=== PATIENT | female | born 1960 | race Caucasian/White ===

== ENCOUNTER 2021-12-27 17:12 | Emergency (ER) | payer OTHER, SELFPAY ==
--- NOTE | 2021-12-27 | ECG_ITS ---
Test Reason : chest pain Blood Pressure : / mmHG Vent. Rate : 072 BPM Atrial Rate : 072 BPM P-R Int : 154 ms QRS Dur : 076 ms QT Int : 438 ms P-R-T Axes : -22 025 026 degrees QTc Int : 479 ms Normal sinus rhythm Normal ECG No previous ECGs available Referred By: Generic ED Physician Electronically Signed By:Jean Claude Tee
--- NOTE | ~2021-12-27 | XR_ITS ---
EXAMINATION: PORTABLE CHEST 1 VIEW CLINICAL INFORMATION: CP . COMPARISON: No recent pertinent prior studies are available for comparison. TECHNIQUE: Portable frontal view of the chest was obtained. FINDINGS: The lungs are well expanded. Minimal basilar markings more likely due to atelectasis and overlying soft tissue but no superimposed focal infiltrate, effusion, edema, or pneumothorax. Cardiac and mediastinal silhouettes are within normal limits for technique. No acute bony abnormality seen. XR/XR chest 1V IMPRESSION: No evidence of acute disease.
[2021-12-27 17:20] VITALS: BP 198/118; PULSE 80; RESP 16; TEMP 36.5; O2SAT 98; BMI 32.3
[2021-12-27 17:37] LABS: MANUAL DIFF FLAG NO
[2021-12-27 17:45] LABS: Basophils Percent Auto 0.6 % (0-2); Eosinophils Absolute Auto 0.2 X10*3/uL (0.0-0.4); Hemoglobin 14.2 g/dl (12.0-16.0); Monocytes Absolute Auto 0.3 X10*3/uL (0.1-1.2); Neutrophils Absolute Auto 4.2 x10*3/uL (2.0-8.3); PLT CLUMP 1; Red Cell Distribution Width 12.8 % (11.0-16.0); SCAN SMEAR FLAG 1
[2021-12-27 17:47] LABS: Eosinophils Percent Auto 2.9 % (0-4); Hematocrit 41.7 % (37.0-47.0); Imm Gran Abs Auto 0.04 X10*3/uL (0.00-0.03); Imm Gran Pct Auto 0.6 % (0.0-0.4); Lymphocytes Absolute Auto 1.7 X10*3/uL (1.2-4.9); Lymphocytes Percent Auto 26.4 % (20-40); Mean Corpuscular HGB Conc 34.1 g/dl (31.0-35.0); Mean Corpuscular Hemoglobin 29.5 pg (27.0-33.0); Mean Corpuscular Volume 86.7 fL (80.0-98.0); Monocytes Percent Auto 5.2 % (2-11); Neutrophils Percent Auto 64.3 % (45-73); Red Blood Count 4.81 X10*6/uL (4.20-5.50)
[2021-12-27 17:52] LABS: Anion Gap 13 (12-20); Blood Urea Nitrogen 14 mg/dL (9-16); Calcium 9.2 mg/dL (8.4-10.2); Carbon Dioxide 27 mmol/L (22-29); Chloride 105 mmol/L (96-108); Creatinine Clr Calc Pharmacy 68.9; Estimated Glomerular Filt Rate 59; Glucose Random 165 mg/dL (60-115); Potassium 4.5 mmol/L (3.3-5.1); Sodium 140 mmol/L (135-145)
[2021-12-27 17:57] LABS: Troponin-I High Sensitivity < 3.5 ng/L (<3.5-17.0)
[2021-12-27 18:00] LABS: Platelet Count 129 X10*3/uL (160-400); White Blood Count 6.4 X10*3/uL (4.8-10.8)
--- NOTE | 2021-12-27 20:35 | PC.NURSE ---
Called twice, no answer
[2021-12-27 22:21] VITALS: BP 233/125; PULSE 70; RESP 18; TEMP 37; O2SAT 96
--- NOTE | 2021-12-27 22:32 | PC.NURSE ---
MD made aware of patient BP
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
[2021-12-27 23:32] VITALS: BP 190/100; PULSE 64; RESP 14; O2SAT 96
[2021-12-27] MEDS: Labetalol HCL 100 MG/20 ML VIAL 20 MG IVPUSH (23:32)
[2021-12-28 01:06] VITALS: BP 181/91; PULSE 69; RESP 16; O2SAT 96
[2021-12-28] MEDS: Labetalol HCL 100 MG/20 ML VIAL 10 MG IVPUSH (01:15)
[2021-12-28 01:56] VITALS: BP 185/96; PULSE 68; RESP 16; O2SAT 93
== END 2021-12-28 01:57 | disposition home or self-care (01) ==
PROVIDERS: Emergency Medicine; Emergency Provider Emergency Medicine
DX: R07.89 Other chest pain (principal); I10 Essential (primary) hypertension; Z79.899 Other long term (current) drug therapy
CPT/HCPCS: 36415; 71045; 80048; 84484; 85025; 93005; 96374; 96376; 99284

== ENCOUNTER → 2022-03-23 14:21 | Outpatient (BNVA) | payer OTHER, SELFPAY | PROVIDERS: Visit Provider Internal Medicine | DX: I10 Essential (primary) hypertension (principal); F17.200 Nicotine dependence, unspecified, uncomplicated; Z71.6 Tobacco abuse counseling | CPT/HCPCS: 93005 ==

== ENCOUNTER → 2022-03-26 14:43 | Outpatient (REF) | payer OTHER, SELFPAY ==
--- NOTE | 2022-03-26 14:46 | CA_ITS ---
Transthoracic Echocardiogram Patient (Last, First, Middle): Debra Spain, Gender: Female Date of : 1960 Age: 61 Procedure Date: 03/26/2022 Procedure Type: Transthoracic Echocardiogram Location: OP Height: 167.64 cm Weight: 104.33 kg BSA: 2.12 m2 Heart Rate: 81 bpm BP: 185 / 96 mmHg Automotive Diagnostic Technician: SB Referring MD: Cristino Herrera MD Symptoms: I10 - Essential (primary) hypertension Study Quality: Adequate ECG Rhythm: Sinus Conclusions: - The left ventricular systolic function is hyperdynamic. The visually estimated ejection fraction is >70%. - There is moderate mitral annular calcification. Findings Left Ventricle Normal left ventricular cavity size. There is normal left ventricular wall thickness. The left ventricular systolic function is hyperdynamic. The visually estimated ejection fraction is >70%. There is no evidence of regional wall motion abnormalities. Diastolic function is normal for age. LV peak GLS -16.2%. Right Ventricle Normal right ventricular cavity size and systolic function. Atria Both atria are normal in size. Aortic Valve The aortic valve was not well visualized. There is no aortic valve stenosis. There is no aortic valve regurgitation. Mitral Valve There is moderate mitral annular calcification. There is trace mitral valve regurgitation. There is no mitral valve stenosis. Pulmonic Valve The pulmonic valve is likely normal. Tricuspid Valve There is trace tricuspid valve regurgitation. The pulmonary artery systolic pressure is normal. Great Vessels The asc aorta is normal in size. Venous The inferior vena cava is normal in size and collapses greater than 50% with inspiration. Pericardium/Pleural There is no evidence of pericardial effusion. Prior Study Comparison No prior study available for comparison. Measurements 2D Linear Measurements IVSd: 0.98 0.6-0.9/0.6-1.0 cm LVIDd: 4.36 3.9-5.3/4.2-5.9 cm LVIDd Index: 2.06 2.4-3.2/2.2-3.1 cm/m2 LVIDs: 2.24 2.0-3.6 cm LVPWd: 0.82 0.7-1.1 cm LA Diam: 3.80 2.7-3.8/3.0-4.0 cm LAIDs Index: 1.79 1.5-2.3 cm/m2 LV Mass: 157.37 67-162/88-224 g LV Mass Index: 74.23 43-95/49-115 g/m2 LVOT Diam: 1.90 3.0+(-)1.3 cm 2D Systolic Function EF 4C: 57.20 >55% EF 2C: 67.90 >55% EF BiP: 64.40 >55% Mitral Valve MV Pk E: 1.07 MV PK A: 1.16 MV Decel Time: 257.00 E/A: 0.90 E'Lateral: 6.74 E'Medial: 7.94 E/E' Med: 13.50 E/E' Lat: 15.90 PHT: 75.00 MVA PHT: 2.93 Decel Spink: 4.15 Aortic Valve AoV Pk Ivan: 1.83 AoV Mn Ivan: 1.34 AoV VTI: 0.38 AoV Pk Grad: 13.00 Aov Mn Grad: 8.00 MARCY Cont.VTI: 2.77 LVOT LVOT Pk Ivan: 1.82 LVOT Mn Ivan: 1.29 LVOT VTI: 0.37 LVOT Pk Grad: 13.00 LVOT Mn Grad: 7.00 LVOT Diam: 1.90 LVOT Area: 2.84 Diastolic Function MV Pk E: 1.07 MV Pk A: 1.16 E/A: 0.90 E'Medial: 7.94 E/E' Med: 13.50 E' Laterial: 6.74 E/E' Lat: 15.90 Right Ventricle TAPSE (mm): 22.80 TVS' Ivan: 18.70 Tricuspid Valve TR Pk Ivan: 2.62 TR Pk Grad: 27.00 RA Press: 3.00 RVSP: 30.00 Great Vessels Aorta Sinus of Valsalva: 2.60 2.0-3.5 cm Ao Asc: 2.60 2.1-3.4 cm Pulmonary Valve PV Pk Ivan: 1.27 Peak PV Grad: 6.00 Updated in Other Vendor System with Status of Final Cristino Herrera MD electronically signed on 03/27/2022 1:51:29 PM with status of Final
== END ==
LOC: HO.CARD 14:43
PROVIDERS: Visit Provider Internal Medicine
DX: I10 Essential (primary) hypertension (principal)
CPT/HCPCS: 93306; 93356

== ENCOUNTER 2023-08-24 12:47 | Emergency (ER) | payer OTHER, SELFPAY ==
--- NOTE | ~2023-08-24 | CT_ITS ---
EXAMINATION: CT SOFT TISSUE NECK WITH CONTRAST CLINICAL INFORMATION: Right neck and lower jaw swelling with tenderness. COMPARISON: None available. TECHNIQUE: Following intravenous administration of 60 mL of Omnipaque 350 contrast, helical imaging was performed in the axial plane with generation of coronal and sagittal reformatted images. This CT examination was performed using dose optimization techniques as appropriate, variously including the following: *Automated exposure control. *Adjustment of mA and/or kV according to patient size (this includes techniques or standardized protocols for targeted exams where dose is matched to indication/reason for exam; i.e. extremities or head). *Use of iterative reconstruction technique. DLP: 856 mGy-cm FINDINGS: There is asymmetric enlargement of the right submandibular gland with heterogeneous attenuation. Additional [id number] inflammatory changes are seen in the subcutaneous fat of the right submandibular triangle extending into the submental space as well. There is mild thickening of the platysma muscle on the right side. No discrete drainable fluid collection is seen. No obstructing calculus is seen within the right submandibular gland or along Floyd's duct. No pathologically enlarged cervical lymph nodes are seen. The right common carotid artery and both internal carotid arteries have a partial retropharyngeal course. The carotid vasculature otherwise opacifies normally. A mild degree of soft tissue stranding is also evident within the right carotid space and the right parapharyngeal fat space anteriorly. The parotid and left submandibular glands are normal in appearance. The thyroid gland is homogeneous. Inflammatory soft tissue reticulation tracks inferiorly in the subcutaneous fat of the anterior cervical spaces with a mild amount of fluid insinuating around the strap musculature in the infrahyoid neck. The airway is well maintained. The visualized mediastinum appears normal. The imaged portions of the lungs are clear. No acute osseous abnormality is seen. Moderate multilevel disc space narrowing with disc-osteophyte complexes are visible, particularly at the C4-C5 and C5-C6 levels. Focal central disc protrusion also visible at the C3-C4 level. The orbits are normal. The imaged portions of the brain demonstrate no acute abnormality. The paranasal sinuses and mastoid air cells are well aerated. CT/CT soft tissue neck w IV con IMPRESSION: Imaging findings most indicative for right submandibular sialoadenitis of a presumed infectious/inflammatory in etiology. No sialoliths visible. Extensive soft tissue stranding and cellulitic changes in the submental space, anterior cervical space of the neck, and right submandibular triangle. No organized fluid collection identified. Additional fluid tracking with inflammatory changes in the strap musculature of the infrahyoid neck. No cervical adenopathy.
[2023-08-24 13:03] VITALS: BP 216/109; PULSE 78; RESP 18; TEMP 36.8; O2SAT 98; BMI 39.8
--- NOTE | 2023-08-24 13:03 | ED.NECK ---
HPI - Neck Pain/Injury General Chief Complaint: Skin/Abscess/Foreign Body Stated Complaint: Lump on R side of neck/hard to swallow Time Seen by Provider: 08/24/23 18:13 Source: patient Mode of arrival: ambulatory Limitations: no limitations History of Present Illness HPI Narrative: Patient is a 62-year-old female who presents to the emergency department for evaluation of a lump and swelling to the right upper lateral neck, submandibular region. She reports onset yesterday to be pea sized with rapid growth today. She states that she is having difficulty swallowing solids due to this but is able to tolerate swallowing liquids. It is painful. She states that she had a COVID-19 infection a few months ago but otherwise denies any recent URI or illness since then. She reports a history of a similar lump to the left side of her neck is however this is approximately 20 years ago and she developed it soon after receiving the influenza vaccine, reporting that she required 2 rounds of antibiotics and ultimately surgical incision but does not recall exactly where the mass originated. She denies any ear pain, sore throat, cough, neck stiffness, fevers, chills, night sweats. She does state over the past 7 months she has had an intentional 50 lb weight loss. She has received routine vaccinations including MMR. Denies any recent travel. No dental pain. Additionally, she has known hypertension, states for many years she has had asymptomatic hypertension despite this. Approximately 1 month ago she missed her appointment her primary care doctor never received her ER refill for amlodipine, she is noted to be hypertensive today 210/98, asymptomatic Related Data Previous Rx's Medication Instructions Recorded amlodipine 10 mg tablet 10 mg PO DAILY #90 tabs 03/23/22 amlodipine 10 mg tablet 10 mg PO DAILY #30 tabs 08/24/23 clindamycin HCl 300 mg capsule 300 mg PO TID #21 caps 08/24/23 metronidazole 500 mg tablet 500 mg PO BID #20 tabs 08/24/23 Allergies Allergy/AdvReac Type Severity Reaction Status Date / Time influenza virus vaccine qs Allergy Anaphylaxis Verified 03/23/22 14:28 [id number] (65 years up) [From Fluad Quad (65y up)(PF)] vaccine adjuvant emulsion Allergy Anaphylaxis Verified 03/23/22 14:28 MF59C.1 [From Fluad Quad 2021-22(65y up)(PF)] Review of Systems Review of Systems: Yes all other systems are reviewed and are negative [facility] Past Medical History Attestation statement: The following information was validated with the patient. Source: old records reviewed Medical History HTN (hypertension) Surgical History History of tubal ligation History of tonsillectomy History of appendectomy (~1978) Family History Family History (Updated 03/23/22 @ 14:28 by PRINCE Tomlin) Father HTN (hypertension) Mother HTN (hypertension) Social History Social History (Updated 03/23/22 @ 14:28 by PRINCE Tomlin) Patient Tobacco Use Status: Current everyday Tobacco user Cigarettes Per Day: 10 Advance Directives: No Advance Directives Information Provided: No Physical Exam Vital Signs: Vital Signs: Last Vital Signs Temp 98.0 F 08/24/23 18:56 Pulse 76 08/24/23 18:56 Resp 18 08/24/23 18:56 BP 154/111 H 08/24/23 21:36 Pulse Ox 100 08/24/23 18:56 O2 Del Method Room Air 08/24/23 18:56 BMI result Body Mass Index 39.8 Appearance: Alert.?Oriented to person, place and time. No acute distress.?Normal affect. Eyes: Pupils equal, round and reactive to light.? ENT/ Neck: Pharynx normal. Right anterior upper neck/submandibular region swelling, palpable masses, tenderness. Right TM normal. No postauricular tenderness. Positive mastoid tenderness. CVS: Heart sounds normal. Normal heart rate and rhythm.? Pulses normal.?? Respiratory: No respiratory distress.? Lung sounds clear to auscultation bilaterally?? Abdomen: Soft and non-tender. Normoactive bowel sounds. Skin: Skin warm and dry.? Normal skin color.? Extremities: No lower extremity edema.? Neuro: Moves all extremities spontaneously. Sensation intact bilaterally. Ambulates with normal steady gait. Course Course Course Narrative: RME: 62yo F w/PMHx HTN (noncompliant on BP meds x1 mos) c/o upper neck > right side, swelling & pain since 15:00 yesterday, worsening today now w/difficulty swallowing. reports hx of left neck mass s/p excision HTNsive. +Notable swelling and ttp under chin/upper neck, firm. no erythema or fluctuance. talking in complete sentences, uvula midline Labs, Viral testing, rapid strep, CT neck ordered. Patients home dose of Amlodipine ordered Full HPI, ROS and PE to be performed by primary ED provider. Reevaluation(s) Reevaluation #1: CT soft tissue neck indicates right submandibular sialadenitis without identified sialoliths with associated extensive soft tissue stranding and cellulitic changes of the submental space, anterior cervical space, and right submandibular triangle in addition to fluid tracking with inflammatory changes in the strap musculature of the infrahyoid neck. Reviewed this case with ED attending Dr. Bill, who also reviewed CT reading and labs, advised plan to treat at this time as infectious process, course of treatment to include oral metronidazole and clindamycin. She is nontoxic in appearance, does not have evidence of sepsis. No leukocytosis, tachycardia, fever. No airway compromise. She remains hypertensive at this time despite for oral amlodipine. Will trial IV labetalol and re-evaluate Time: 20:05 Reevaluation #2: Recess, blood pressure 152/96 manually obtained. Reviewed this with patient. Sent prescription for amlodipine to her pharmacy. Outpatient follow-up with her primary care provider. Reviewed worrisome signs and symptoms that would warrant re-evaluation emergency department. All questions answered. Stable for discharge. Time: 22:12 Medications Administered Discontinued Medications Generic Name Dose Route Start Last Admin Trade Name Freq PRN Reason Stop Dose Admin Amlodipine Besylate 10 mg 08/24/23 13:12 08/24/23 18:46 Amlodipine Besylate 10 Mg Tablet PO 08/24/23 13:13 10 mg ONCE ONE Administration Protocol Sodium Chloride 1,000 mls @ 999 mls/hr 08/24/23 18:30 08/24/23 18:47 Ns IV 08/24/23 19:30 999 mls/hr .Q1H1M HUEY Administration Iohexol 100 ml 08/24/23 18:37 08/24/23 18:37 Iohexol 350 Mg/Ml 100 Ml Infus..Btl IV 08/24/23 18:38 60 ml ONCE ONE Administration Labetalol HCl 10 mg 08/24/23 20:43 08/24/23 20:54 Labetalol Hcl 100 Mg/20 Ml Vial IVPUSH 08/24/23 20:44 10 mg ONCE ONE Administration Medical Decision Making Medical Decision Making [facility] Narrative: Patient is a 62-year-old female past medical history of hypertension, history of left neck mass s/p excision 20 years ago presents emergency department for evaluation of a right-sided neck mass and incidentally noted to be hypertensive but is asymptomatic. No respiratory distress at this time, maintaining airway managing secretions. She does endorse difficulty swallowing solids due to this. Will obtain basic labs, viral testing, mono screen, strep a, CT of the soft tissue neck, and patient receive her previously prescribed dose of amlodipine Differential Diagnosis Differential Diagnoses: The differential diagnosis associated with the presentation includes (Parotid mass, salivary duct obstruction, thyroid mass, soft tissue mass) Admission/Observation Consideration of admission/observation: Escalation of care including admission/observation considered (See narrative above and course narrative for further detail) Lab Data [facility] Lab Attestation statement: I reviewed the patient's lab results. CBC is without leukocytosis or anemia, BMP is unremarkable. Very mildly elevated LFTs; total bilirubin, AST/ALT. Inflammatory markers within normal range. [place] screen negative. Viral testing negative. Strep a testing negative. 08/24/23 13:48 08/24/23 13:48 Labs: Lab Results 08/24/23 08/24/23 08/24/23 Range/Units 13:42 13:47 13:48 WBC 6.6 (4.8-10.8) X10*3/uL RBC 5.30 (4.20-5.50) X10*6/uL Hgb 15.5 (12.0-16.0) g/dl Hct 45.0 (37.0-47.0) % MCV 84.9 (80.0-98.0) fL MCH 29.2 (27.0-33.0) pg MCHC 34.4 (31.0-35.0) g/dl RDW 12.7 (11.0-16.0) % Plt Count 127 L (160-400) X10*3/uL MPV 10.5 (9.4-12.3) fL Immature Gran % (Auto) 0.6 H (0.0-0.4) % Neut % (Auto) 67.0 (45-73) % Lymph % (Auto) 22.9 (20-40) % [place] % (Auto) 6.8 (2-11) % Eos % (Auto) 2.1 (0-4) % Baso % (Auto) 0.6 (0-2) % Lymph # (Auto) 1.5 (1.2-4.9) X10*3/uL [place] # (Auto) 0.5 (0.1-1.2) X10*3/uL Eos # (Auto) 0.1 (0.0-0.4) X10*3/uL Baso # (Auto) 0.0 (0.0-0.2) X10*3/uL Abs Immat Gran (auto) 0.04 H (0.00-0.03) X10*3/uL Absolute Neuts (auto) 4.4 (2.0-8.3) x10*3/uL Absolute Nucleated RBC 0.000 (0.0-0.012) X10*3/uL Nucleated RBC % (auto) 0.0 (0.0-0.2) /100WBC ESR 2 (0-20) MM/HR PT 11.5 (11.1-13.3) SEC INR 0.9 (0.9-1.1) Sodium 140 (135-145) mmol/L Potassium 4.1 (3.3-5.1) mmol/L Chloride 106 (96-108) mmol/L Carbon Dioxide 27 (22-29) mmol/L Anion Gap 11 L (12-20) BUN 13 (9-16) mg/dL Creatinine 0.86 (0.5-1.4) mg/dL Estim Creat Clear Calc 84.8 Estimated GFR > 60 Random Glucose 95 (60-115) mg/dL Calcium 9.1 (8.4-10.2) mg/dL Total Bilirubin 1.1 H (0.0-1.0) mg/dL Direct Bilirubin 0.4 (0.0-0.5) mg/dL AST 41 H (5-31) U/L ALT 53 H (0-31) U/L Alkaline Phosphatase 67 (39-117) U/L C-Reactive Protein < 0.10 (< or = 0.50) mg/dL Total Protein 6.8 (6.5-8.0) g/dL Albumin 4.3 (3.5-5.0) g/dL Monoscreen Negative (Negative) Influenza Type A (PCR) NEGATIVE (Negative) Influenza Type B (PCR) NEGATIVE (Negative) RSV RNA Qual (PCR) NEGATIVE (Negative) SARS-CoV-2 RNA (RT-PCR) NEGATIVE (Negative) S. pyogenes GrpA POLINA Negative (Negative) Independent Interpretation I performed an independent interpretation of an: CT Scan Radiology Impression Discussion of test interpretation with radiology: I have reviewed the radiologist's reading. Radiologist Impression: CT/CT soft tissue neck w IV con IMPRESSION: Imaging findings most indicative for right submandibular sialoadenitis of a presumed infectious/inflammatory in etiology. No sialoliths visible. Extensive soft tissue stranding and cellulitic changes in the submental space, anterior cervical space of the neck, and right submandibular triangle. No organized fluid collection identified. Additional fluid tracking with inflammatory changes in the strap musculature of the infrahyoid neck. No cervical adenopathy. Discharge Plan Discharge Clinical Impression: Sialadenitis, Uncontrolled hypertension Instructions: Sialoadenitis (ED), Hypertension (ED) Prescriptions: New amlodipine 10 mg tablet 10 mg PO DAILY Qty: 30 0RF metronidazole 500 mg tablet 500 mg PO BID Qty: 20 0RF clindamycin HCl 300 mg capsule 300 mg PO TID Qty: 21 0RF No Action amlodipine 10 mg tablet 10 mg PO DAILY Qty: 90 3RF Referrals: Physician,None [Primary Care Provider] -
[2023-08-24 13:55] LABS: MANUAL DIFF FLAG NO
[2023-08-24 14:00] LABS: Basophils Percent Auto 0.6 % (0-2); Eosinophils Absolute Auto 0.1 X10*3/uL (0.0-0.4); Eosinophils Percent Auto 2.1 % (0-4); Hemoglobin 15.5 g/dl (12.0-16.0); Imm Gran Abs Auto 0.04 X10*3/uL (0.00-0.03); Imm Gran Pct Auto 0.6 % (0.0-0.4); Lymphocytes Absolute Auto 1.5 X10*3/uL (1.2-4.9); Lymphocytes Percent Auto 22.9 % (20-40); Mean Corpuscular HGB Conc 34.4 g/dl (31.0-35.0); Mean Corpuscular Hemoglobin 29.2 pg (27.0-33.0); Mean Corpuscular Volume 84.9 fL (80.0-98.0); Mean Platelet Volume 10.5 fL (9.4-12.3); Monocytes Absolute Auto 0.5 X10*3/uL (0.1-1.2); Monocytes Percent Auto 6.8 % (2-11); Neutrophils Absolute Auto 4.4 x10*3/uL (2.0-8.3); Platelet Count 127 X10*3/uL (160-400); Red Cell Distribution Width 12.7 % (11.0-16.0); White Blood Count 6.6 X10*3/uL (4.8-10.8)
[2023-08-24 14:01] LABS: INTERNATIONAL NORM RATIO 0.9 (0.9-1.1); Prothrombin Time 11.5 SEC (11.1-13.3)
[2023-08-24 14:03] LABS: IDNOW Serial# 08D9AD1C; Strep A Nucleic Acid Negative (Negative)
[2023-08-24 14:08] LABS: Alanine Aminotransferase 53 U/L (0-31); Albumin Level 4.3 g/dL (3.5-5.0); Alkaline Phosphatase 67 U/L (39-117); Anion Gap 11 (12-20); Aspartate Amino Transferase 41 U/L (5-31); Bilirubin Direct 0.4 mg/dL (0.0-0.5); Bilirubin Total 1.1 mg/dL (0.0-1.0); Blood Urea Nitrogen 13 mg/dL (9-16); C Reactive Protein < 0.10 mg/dL (< or = 0.50); Calcium 9.1 mg/dL (8.4-10.2); Carbon Dioxide 27 mmol/L (22-29); Chloride 106 mmol/L (96-108); Creatinine Clr Calc Pharmacy 84.8; Estimated Glomerular Filt Rate > 60; Glucose Random 95 mg/dL (60-115); Potassium 4.1 mmol/L (3.3-5.1); Sodium 140 mmol/L (135-145); Total Protein 6.8 g/dL (6.5-8.0)
[2023-08-24 14:11] LABS: Monotest Negative (Negative)
[2023-08-24 14:34] LABS: Erythrocyte Sedimentation Rate 2 MM/HR (0-20)
[2023-08-24 14:37] LABS: Influenza A PCR NEGATIVE (Negative); Influenza B PCR NEGATIVE (Negative); Resp Syncy Virus RNA Qual PCR NEGATIVE (Negative); SARS COV2 PCR INHOUSE NEGATIVE (Negative)
[2023-08-24] MEDS: iohexoL 350 MG/ML 100 ML INFUS..BTL IV (18:37)
[2023-08-24] MEDS: amLODIPine Besylate 10 MG TABLET PO (18:46)
[2023-08-24] MEDS: 0.9 % Sodium Chloride 1,000 ML 999 ML IV (18:47)
[2023-08-24 18:56] VITALS: BP 210/98; PULSE 76; RESP 18; TEMP 36.7; O2SAT 100
[2023-08-24] MEDS: Labetalol HCL 100 MG/20 ML VIAL 10 MG IVPUSH (20:54)
[2023-08-24 21:36] VITALS: BP 154/111
== END 2023-08-24 22:27 | disposition home or self-care (01) ==
PROVIDERS: Physician Assistant; Emergency Provider Emergency Medicine
DX: K11.20 Sialoadenitis, unspecified (principal); I10 Essential (primary) hypertension; Z91.148 Patient's other noncompliance with medication regimen for other reason; Z20.822 Contact with and (suspected) exposure to COVID-19; Z20.828 Contact with and (suspected) exposure to other viral communicable diseases
CPT/HCPCS: 0241U; 70491; 80048; 80076; 85025; 85610; 85652; 86140; 86308; 87651; 96374; 99284; J1920; Q9967

== ENCOUNTER → 2024-05-10 09:18 | Outpatient (BNVA) | payer SELFPAY | PROVIDERS: Visit Provider Physician Assistant Medical | DX: Z02.1 Encounter for pre-employment examination (principal) ==

== ENCOUNTER 2025-04-14 18:56 | Emergency (ER) | payer BC, SELFPAY ==
[2025-04-14] VITALS (7 sets, daily range): BP systolic 170–239; BP diastolic 87–126; PULSE 66–79; RESP 15–18; TEMP 36.7–37.1; O2SAT 95–96; BMI 38.7
--- NOTE | 2025-04-14 | ECG_ITS ---
Test Reason : CHEST PAIN Blood Pressure : */* mmHG Vent. Rate : 70 BPM Atrial Rate : 70 BPM P-R Int : 164 ms QRS Dur : 76 ms QT Int : 424 ms P-R-T Axes : -19 18 43 degrees QTcB Int : 457 ms Normal sinus rhythm Cannot rule out Anterior infarct , age undetermined Abnormal ECG When compared with ECG of 27-Dec-2021 17:14, No significant change was found Referred By: Rancho Bartlett Electronically Signed By: TAMEKA TY MD
--- NOTE | ~2025-04-14 | XR_ITS ---
CLINICAL HISTORY: chest pain 2 view chest x-ray Comparison: None provided Findings: Lungs are clear without acute infiltrates. No pneumothorax. Heart size normal. No acute bony abnormalities. Impression: No acute processes This document has been electronically signed by: Cole Julio MD on 04/14/2025 21:00:56
--- NOTE | 2025-04-14 19:18 | ED_ITS ---
HPI - Chest Pain General Chief Complaint: Chest Pain Stated Complaint: Chest pain x25 mins Time Seen by Provider: 04/14/25 19:02 Source: patient and EMS Mode of arrival: EMS Limitations: no limitations History of Present Illness ED Provider: HPI narrative: 64-year-old woman with history of hypotension, she is a smoker, overweight, states he has not seen a PCP for 10 years, used to be on amlodipine for high it in the awhile, she states she would take Catapres as needed, approximately at 18:00 started developing chest pain radiating to her right ear had an episode of nausea, presented hypotensive, anxious, 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 States usually her blood pressure is 176/102 She does minimal salt, and tries homeopathic therapy Related Data Previous Rx's ?Medication ?Instructions ?Recorded amlodipine 10 mg tablet 10 mg PO DAILY #90 tabs 02/27 02/17 amlodipine 10 mg tablet 10 mg PO DAILY #30 tabs 07/30 03/20 clindamycin HCl 300 mg capsule 300 mg PO TID #21 caps 08/24/23 metronidazole 500 mg tablet 500 mg PO BID #20 tabs amlodipine 10 mg tablet 10 mg PO DAILY #90 tabs 03/29 03/22 diazepam 2 mg tablet (Valium) 2 mg PO TID PRN spasms 2 days #6 04/14/25 tabs Allergies Allergy/AdvReac Type Severity Reaction Status Date / Time influenza virus vaccine qs Allergy Anaphylaxis Verified 04/14/25 19:07 [id number] (65 years up) (From Fluad Quad 2020-(65y up)(PF)) vaccine adjuvant emulsion Allergy Anaphylaxis Verified 04/14/25 19:07 [id number] (From Fluad Quad 2020-(65y up)(PF)) Review of Systems 2 Constitutional: Constitutional: Reports as per HPI PMFSH Past Medical History Medical History HTN (hypertension) Surgical History History of tubal ligation History of tonsillectomy History of appendectomy (~1978) Family History Family History (Updated 03/23/22 @ 14:28 by PRINCE Tomlin) Father HTN (hypertension) Mother HTN (hypertension) Social History Social History (Updated 03/23/22 @ 14:28 by PRINCE Tomlin) Patient Tobacco Use Status: Current everyday Tobacco user Cigarettes Per Day: 10 Smoked in Last 30 Days: Yes Use of substances other than those prescribed or required for medical reasons: No Advance Directives: No Advance Directives Information Provided: Yes Do you have a plan to hurt others: No Plan Physical Exam 2 Vital Signs: Vital Signs: Last Vital Signs Temp 98.8 F 04/14/25 20:15 Pulse 79 04/14/25 19:43 Resp 15 04/14/25 19:43 BP 186/96 H 04/14/25 21:07 Pulse Ox 96 04/14/25 19:43 O2 Del Method Room Air 04/14/25 19:43 BMI result Body Mass Index 38.7 Const: Other: * Gen: Anxious affect * HEENT: PERRLA, EOMI, MMM, * Neck: Supple, no LAD * CV: RRR, no obvious murmurs appreciated, radial pulses +2 bilaterally * Resp: ?No wheezing rales rhonchi no stridor moving air well * Abd: ?Bowel sounds are present, no tenderness no rebound no rigidity * MSK: FROM, strength 5/5 all extremities, no lower extremity edema * Skin: Warm, dry, intact, * Neuro: ?Alert and oriented x3, moving upper and lower extremities symmetrically, no obvious facial asymmetry noted Medications Administered Discontinued Medications Generic Name Dose Route Start Last Admin Trade Name Awais PRN Reason Stop Dose Admin Amlodipine Besylate 10 mg 04/14/25 21:02 04/14/25 21:07 Amlodipine Besylate 10 Mg Tablet PO 04/14/25 21:03 10 mg ONCE ONE Administration Protocol Diazepam 2 mg 04/14/25 19:20 04/14/25 19:37 Diazepam 10 Mg/2 Ml Cartridge IVPUSH 04/14/25 19:21 2 mg STAT STA Administration Medical Decision Making Medical Decision Making [facility] Narrative: Patient with history of hypertension, does not take amlodipine on regular basis started developing chest pain, took aspirin and nitro was subsiding of her symptoms, presenting significantly hypotensive, but also very anxious, at baseline she is quite hypotensive, we will be cautious about drop in her blood pressure quite rapidly so my approach we will be to give her some benzodiazepines to make sure she is more relaxed and at that point I feel that I will know what her baseline blood pressure is and then depending on whether she is becoming more symptomatic but she is not at this time or troponin is elevated then I would proceed with blood pressure management likely with a beta hanny, thus far my considerations for workup as below, she is not having severe chest pain radiating to the back to suspect aortic dissection did not feel further imaging such as CT is indicated, ECG without changes to suspect underlying ischemia 21:00 patient's blood pressure at bedside is 186/92 which is more or less her baseline will provide her with 1st dose of amlodipine Differential Diagnosis Differential Diagnoses: The differential diagnosis associated with the presentation includes (End-organ damage such as ACS, KRISTEN, subarachnoid hemorrhage, aortic dissection, pulmonary edema) Admission/Observation Consideration of admission/observation: Escalation of care including admission/observation considered 2022 Emergency Medicine Coding Guide from [employer] on 04/14/2025 All calculations should be rechecked by clinician prior to use RESULT SUMMARY: 5 Estimated Level of Service Problems: High (5) Risk: High (5) Data: Extensive (5) NARRATIVE MDM: This patient's problem complexity is High as patient: with chronic illness(es) with severe exacerbation/progression/side effects. This patient's risk is High due to: overall presentation requiring evaluation for a potentially High-risk process. This patient's data complexity is Extensive due to: -multiple tests ordered/reviewed -independent interpretation of imaging or EKG INPUTS: Number and Complexity ?> 1 = 5: chronic illness w/severe exacerbation (a) Risk level ?> 4 = High Tests ordered ?> 3 = >= Tests results reviewed (excluding labs) ?> 2 = 2 Prior external notes reviewed ?> 0 = 0 Assessment requiring and independent historian ?> 0 = No Independent interpretation of tests ?> 1 = Yes Discussed management/test interpretation w/external professional ?> 0 = No Lab Data MDM Lab Attestation statement: I reviewed the patient's lab results. 04/14/25 19:46 04/14/25 19:46 Labs: Lab Results 04/14/25 Range/Units 19:46 WBC 6.4 (4.8-10.8) X10*3/uL RBC 4.59 (4.20-5.50) X10*6/uL Hgb 13.8 (12.0-16.0) g/dl Hct 39.1 (37.0-47.0) % MCV 85.2 (80.0-98.0) fL MCH 30.1 (27.0-33.0) pg MCHC 35.3 H (31.0-35.0) g/dl RDW 13.2 (11.0-16.0) % Plt Count 101 L (160-400) X10*3/uL MPV 9.6 (9.4-12.3) fL Immature Gran % (Auto) 0.5 H (0.0-0.4) % Neut % (Auto) 67.7 (45-73) % Lymph % (Auto) 21.1 (20-40) % Cameron % (Auto) 7.4 (2-11) % Eos % (Auto) 2.8 (0-4) % Baso % (Auto) 0.5 (0-2) % Lymph # (Auto) 1.3 (1.2-4.9) X10*3/uL Cameron # (Auto) 0.5 (0.1-1.2) X10*3/uL Eos # (Auto) 0.2 (0.0-0.4) X10*3/uL Baso # (Auto) 0.0 (0.0-0.2) X10*3/uL Abs Immat Gran (auto) 0.03 (0.00-0.03) X10*3/uL Absolute Neuts (auto) 4.3 (2.0-8.3) x10*3/uL Absolute Nucleated RBC 0.000 (0.0-0.012) X10*3/uL Nucleated RBC % (auto) 0.0 (0.0-0.2) /100WBC Sodium 144 (135-145) mmol/L Potassium 3.9 (3.3-5.1) mmol/L Chloride 110 H (96-108) mmol/L Carbon Dioxide 26 (22-29) mmol/L Anion Gap 12 (12-20) BUN 16 (9-16) mg/dL Creatinine 1.02 (0.5-1.4) mg/dL Estim Creat Clear Calc 68.7 Estimated GFR 54 Random Glucose 99 (60-115) mg/dL Calcium 8.7 (8.4-10.2) mg/dL Magnesium 2.3 (1.6-2.6) mg/dL Troponin I High Sens 5.4 (<3.5-17.0) ng/L TSH 0.82 (0.32-4.0) uIU/mL Independent Interpretation I performed an independent interpretation of an: EKG (70 beats per minute otherwise normal ECG without dysrhythmia, AV myriam blocks or ST-T changes to suspect underlying ACS, my independent interpretation) Independent Historian Clinical information obtained from an independent historian. History obtained from or confirmed by: EMS External Record Review External record reviewed: Office record Chronic Conditions Patient?s care impacted by: Hypertension Discharge Plan Discharge Clinical Impression: Chronic hypertension, Chest pain, precordial Patient Disposition: Home, Self-Care Additional Instructions: Diagnosis and Initial Evaluation: You have been evaluated in the Emergency Department (ED) for chest pain. Based on your clinical assessment, electrocardiogram (ECG), and high-sensitivity cardiac troponin (hs-cTn) levels, you have been classified as low-risk for acute coronary syndrome (ACS) and myocardial infarction (IN). This means that your likelihood of having a heart attack or other serious heart condition in the next 30 days is very low. I am restarting her on amlodipine 10 mg daily, 1st dose in the ER and just a few pills for anxiety in the meantime, worsening symptoms concerns come back to the ER Follow-Up Care: ? Primary Care Provider (PCP) or Gas Shovel Operator: It is important to follow up with your primary care provider or educational therapy teacher within the next 14 to 30 days. This follow-up is crucial to ensure that any underlying conditions are managed appropriately and to discuss any further testing that may be needed. ? Notification: If you have an established PCP or educational therapy teacher, they have been notified of your ED visit to facilitate continuity of care. Self-Care and Monitoring: ? Medications: Continue taking any prescribed medications as directed. If you have been given new medications, ensure you understand how and when to take them. ? Activity: Resume normal activities as tolerated. Avoid strenuous activities until you have discussed them with your healthcare provider. ? Diet: Maintain a heart-healthy diet, low in saturated fats, cholesterol, and sodium. Red Flags: Seek immediate medical attention if you experience any of the following: ? New or worsening chest pain ? Shortness of breath ? Dizziness or fainting ? Pain radiating to your arm, neck, or jaw ? Sweating, nausea, or vomiting Additional Testing: In some cases, outpatient testing such as a stress test or imaging may be recommended to further evaluate your heart health. Your follow-up provider will discuss this with you if necessary. Mental Health: Anxiety and stress can contribute to chest pain. Consider discussing any concerns with your healthcare provider, who may recommend screening for anxiety or depression and appropriate management strategies. Contact Information: If you have any questions or concerns before your follow-up appointment, please contact your healthcare provider or the ED where you were evaluated. Summary: You have been discharged from the ED with a low risk of serious heart conditions. Follow the instructions above, attend your follow-up appointments, and seek immediate care if you experience any red flags. Prescriptions: New amlodipine 10 mg tablet 10 mg PO DAILY Qty: 90 0RF diazepam [Valium] 2 mg tablet 2 mg PO TID PRN (Reason: spasms) 2 Days Qty: 6 0RF No Action amlodipine 10 mg tablet 10 mg PO DAILY Qty: 30 0RF metronidazole 500 mg tablet 500 mg PO BID Qty: 20 0RF clindamycin HCl 300 mg capsule 300 mg PO TID Qty: 21 0RF amlodipine 10 mg tablet 10 mg PO DAILY Qty: 90 3RF Print Language: Sami
[2025-04-14] MEDS: diazePAM 10 MG/2 ML CARTRIDGE 2 MG IVPUSH (19:37)
--- NOTE | 2025-04-14 19:39 | PC.NURSE ---
pt medicated per MAR
[2025-04-14 19:50] LABS: MANUAL DIFF FLAG NO
[2025-04-14 19:53] LABS: Hematocrit 39.1 % (37.0-47.0); Hemoglobin 13.8 g/dl (12.0-16.0); Imm Gran Abs Auto 0.03 X10*3/uL (0.00-0.03); Imm Gran Pct Auto 0.5 % (0.0-0.4); Lymphocytes Absolute Auto 1.3 X10*3/uL (1.2-4.9); Mean Corpuscular HGB Conc 35.3 g/dl (31.0-35.0); Mean Corpuscular Hemoglobin 30.1 pg (27.0-33.0); Mean Corpuscular Volume 85.2 fL (80.0-98.0); NRBC Abs Auto 0.000 X10*3/uL (0.0-0.012); NRBC Pct Auto 0.0 /100WBC (0.0-0.2); Platelet Count 101 X10*3/uL (160-400); Red Blood Count 4.59 X10*6/uL (4.20-5.50); White Blood Count 6.4 X10*3/uL (4.8-10.8)
[2025-04-14 20:11] LABS: Anion Gap 12 (12-20); Blood Urea Nitrogen 16 mg/dL (9-16); Calcium 8.7 mg/dL (8.4-10.2); Carbon Dioxide 26 mmol/L (22-29); Chloride 110 mmol/L (96-108); Creatinine Clr Calc Pharmacy 68.7; Estimated Glomerular Filt Rate 54; Magnesium 2.3 mg/dL (1.6-2.6); Potassium 3.9 mmol/L (3.3-5.1); Sodium 144 mmol/L (135-145)
[2025-04-14 20:13] LABS: Troponin-I High Sensitivity 5.4 ng/L (<3.5-17.0)
--- NOTE | 2025-04-14 21:09 | PC.NURSE ---
medicated per MAR, pt denies any pain at this time.
[2025-04-14 22:37] LABS: Troponin-I High Sensitivity 6.1 ng/L (<3.5-17.0)
== END 2025-04-14 23:33 | disposition home or self-care (01) ==
PROVIDERS: Emergency Provider Emergency Medicine
DX: R07.9 Chest pain, unspecified (principal); R07.2 Precordial pain; I10 Essential (primary) hypertension; R11.0 Nausea
CPT/HCPCS: 36415; 71046; 80048; 83735; 84443; 84484; 85025; 93005; 96374; 99284; 99285; J3360

== ENCOUNTER → 2025-04-14 19:06 | Outpatient (BNV) | payer SELFPAY | PROVIDERS: Emergency Provider Emergency Medicine; Visit Provider Internal Medicine Cardiovascular Disease | DX: R94.31 Abnormal electrocardiogram [ECG] [EKG] (principal); R07.9 Chest pain, unspecified | CPT/HCPCS: 93010 ==

== ENCOUNTER → 2025-04-14 19:20 | Outpatient (BNV) | payer SELFPAY | PROVIDERS: Emergency Provider Emergency Medicine; Visit Provider Radiology Diagnostic Radiology | DX: R07.9 Chest pain, unspecified (principal) | CPT/HCPCS: 71046 ==